=== PATIENT | female | born 1985 | race Hispanic/Latino ===

== ENCOUNTER 2017-01-01 23:24 | Emergency (ER) | payer SELFPAY ==
[2017-01-01 23:42] VITALS: BP 138/93; PULSE 91; RESP 16; TEMP 98.6; O2SAT 98
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
== END 2017-01-02 00:20 | disposition home or self-care (01) ==
LOC: H.ER 23:24
DX: F43.9 Reaction to severe stress, unspecified (principal); S60.221A Contusion of right hand, initial encounter; W22.8XXA Striking against or struck by other objects, initial encounter; Y92.89 Other specified places as the place of occurrence of the external cause